=== PATIENT | female | born 1990 | race Caucasian/White ===

== ENCOUNTER 2017-02-04 23:43 | Emergency (ER) | payer MEDICAID, OTHER ==
--- NOTE | 2017-02-04 23:56 | EDPHY ---
H & P Time Seen by Provider: 02/04/17 23:50 HPI/ROS: CHIEF COMPLAINT: pain to left foot HISTORY OF PRESENT ILLNESS: previously healthy 26-year-old female some 4 hours ago was attempting to do some play activity showing others how to do a house kitchen jump. However when she came down she rolled her left ankle. She has been having pain ever since having hobble around and unable to weightbear. Of note is that she did hear a staff localized to the lateral aspect of the ankle in the area of the foot just distal to the lateral malleolus as she did this maneuver. She has applied ice and taking 100 mg of ibuprofen with minimal relief, the pain continues to be moderate to severe. At the same token she does not want any narcotics a historically given her stomach upset and vomiting in particular when she was status post tonsillectomy. 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 REVIEW OF SYSTEMS: Constitutional - feeling well prior to the injury Musculoskeletal - see above Integument - [or wounds Neurological - no numbness, tingling, or paresthesias. Smoking Status: Never smoked Physical Exam: General Appearance: Alert, no distress. Afebrile. Extremities: There is mild soft tissue swelling present laterally more so than medially to the left ankle. There is no signs of deformity. Neurovascular status intact. Cap refill is intact. She is tender particularly overlying the lateral aspect of the foot tarsal bones just distal to the lateral malleolus. There is minimal tenderness in the vicinity of the malleolus BS lateral or medial as well. She has negative compression testing. Negative drawer. Neurological: NV intact. Skin: Skin is intact. Warm and dry, no rashes. no lymphangitis. . Constitutional: Initial Vital Signs Temperature (C) 37.5 C 02/05/17 00:00 Heart Rate 80 02/05/17 00:00 Respiratory Rate 16 02/05/17 00:00 Blood Pressure 109/62 02/05/17 00:00 O2 Sat (%) 94 02/05/17 00:00 O2 Delivery Mode Room Air Allergies/Adverse Reactions: Penicillins Allergy (Verified 09/11/15 12:04) Home Medications: Medication Instructions Recorded NK [No Known Home Meds] 02/04/17 Medical Decision Making - Diagnostics Imaging Results: My Plain Film Review: Plain film of 6 you series encompassing both the foot and ankle on the left.. Interpreted by me, contemporaneously. [no acute fracture. No deformity. There are accessory ossicles of the os peroneum. ] Imaging: I viewed and interpreted images myself ED Course/Re-evaluation: As she is very taken Advil 100 mg was given additional Tylenol. She was able to tolerate the x-rays and ultimately had a air stirrup brace applied as well as fitted for crutches. Differential Diagnosis: The differential diagnosis includes but is not limited to: Fracture, Sprain, Strain, Dislocation, Nerve injury, Contusion Departure - Departure Disposition: Home, Routine, Self-Care Clinical Impression: Ankle sprain Qualifiers: Encounter type: initial encounter Involved ligament of ankle: unspecified ligament Laterality: left Qualified Code(s): S93.402A - Sprain of unspecified ligament of left ankle, initial encounter Condition: Good Instructions: Ankle Sprain (ED), Ankle Stirrup Splint (ED) Additional Instructions: Weight bearing as tolerated, crutches as needed Ice - 20 to 30 min on at a time, then remove for 2 hours ELEVATE Return to work in 2 days - see limits. follow up in a week with ortho Tylenol and Advil works well together the combination: Tylenol 1000 mg and 600 mg every 8 hours. Referrals: Ozzy Fleming MD [Medical Doctor] - As per Instructions Stand Alone Forms: Work Limited Duty, Work Excuse
[2017-02-05 00:04] VITALS: RESP 16
[2017-02-05 01:04] VITALS: BP 110/60; PULSE 80; TEMP 98.8; O2SAT 96
== END 2017-02-05 00:55 | disposition home or self-care (01) ==
LOC: CED 23:43
DX: S93.402A Sprain of unspecified ligament of left ankle, initial encounter (principal); X58.XXXA Exposure to other specified factors, initial encounter; Y99.8 Other external cause status; Y93.39 Activity, other involving climbing, rappelling and jumping off
CPT/HCPCS: 73610-PO; 73630-PO; L4350